=== PATIENT | male | born 1960 | race Caucasian/White ===

== ENCOUNTER 2019-02-23 22:01 | Emergency (ER) | payer BC ==
[2019-02-23] MEDS ORDERED: IPRATROPIUM BROM 0.5MG/2.5ML ONE (23:02)
[2019-02-23] MEDS ORDERED: ALBUTEROL 2.5 MG/3 ML NEB SOL ONE (23:02)
[2019-02-23] MEDS ORDERED: AZITHROMYCIN 500 MG INJ IVPB ONE (23:03)
[2019-02-23] MEDS ORDERED: CEFTRIAXONE/SWI 1gm 1 GM/10 ML SYR ONE (23:03)
[2019-02-23] MEDS ORDERED: NA CHLORIDE 0.9% 1,000 ML ONE (23:03)
[2019-02-23] MEDS ORDERED: NA CHLORIDE 0.9% 250 ML ONE (23:03)
[2019-02-23 23:17] LABS: Absolute Lymphocytes (CBC) 1.8 K/uL (0.7-4.9); Absolute Monocytes 1.6 K/uL (0.1-1.3); Absolute Neutrophil 6.6 K/uL (1.8-8.0); Basophils % 0.6 % (0-1.3); Hematocrit 40.7 % (39.6-49.0); Lymphocytes % 17.4 % (15.3-44.8); Monocytes % 15.5 % (3.3-12.3); RBC Red Blood Cell Count 4.57 M/uL (4.33-5.43)
[2019-02-23] MEDS ORDERED: METHYLPREDNISOLONE 125 MG INJ ONE (23:45)
[2019-02-23] MEDS ORDERED: HYDROCODONE/CHLORPHEN 5 ML/OSYR ONE (23:46)
[2019-02-23] MEDS ORDERED: predniSONE 20 MG TAB ONE (23:46)
[2019-02-23 23:53] LABS: ALT/SGPT 40 U/L (12-78); AST/SGOT 30 U/L (15-37); Albumin 3.7 g/dL (3.4-5.0); Alkaline Phosphatase 77 U/L (45-117); BUN Blood Urea Nitrogen 22 mg/dL (7-18); Bicarbonate 26 mmol/L (21-32); Bilirubin Direct 0.1 mg/dL (0-0.2); Bilirubin Total 0.4 mg/dL (0.2-1.0); Glucose Level 125 mg/dL (74-106); Magnesium 2.2 mg/dL (1.8-2.4); NT PRO-BNP 117 pg/mL (<125); Potassium 3.8 mmol/L (3.5-5.1); Protein, Total 7.1 g/dL (6.4-8.2); Sodium Level 141 mmol/L (136-145); Troponin (Emerg Dept Use Only) < 0.02 ng/mL (0.0-0.045)
--- NOTE | 2019-02-24 00:01 | ER ---
Nurse's Notes [facility] Name: Bebeto Baxter Age: 58 yrs Sex: Male : 1960 Arrival Date: 02/23/2019 Time: 22:03 Bed 7 Private MD: Kendall Snow H Diagnosis: Cough;Bronchitis, not specified as acute or chronic;Obesity, unspecified;Unspecified kidney failure Presentation: 02/23 22:11 Presenting complaint: Patient states: "I have so much chest congestion that it is jd3 causing coughing fits.". Transition of care: patient was not received from another setting of care. Resp Distress? No respiratory distress is noted at this time. Onset of symptoms was February 23, 2019. Risk Assessment: Do you want to hurt yourself or someone else? Patient reports no desire to harm self or others. Initial Sepsis Screen: Does the patient meet any 2 criteria? No. Patient's initial sepsis screen is negative. Does the patient have a suspected source of infection? No. Patient's initial sepsis screen is negative. Care prior to arrival: DayQuil taken in the afternoon. 22:11 Method Of Arrival: Ambulatory jd3 22:11 Acuity: RAAD 3 jd3 Historical: - Allergies: 22:14 No Known Allergies; jd3 - Home Meds: 22:14 lisinopril 20 mg Oral tab 2 tabs once daily [Active]; jd3 - PMHx: 22:14 Hypertension; jd3 - PSHx: 22:14 Tonsillectomy; jd3 - Immunization history:: Adult Immunizations up to date. - Social history:: Smoking status: Patient/guardian denies using tobacco, the patient reports quitting approximately 25 years ago. - Ebola Screening: : Patient negative for fever greater than or equal to 101.5 degrees Fahrenheit, and additional compatible Ebola Virus Disease symptoms. - Family history:: not pertinent. Screenin:26 Abuse screen: Denies threats or abuse. Denies injuries from another. Nutritional ao screening: No deficits noted. Tuberculosis screening: No symptoms or risk factors identified. Fall Risk None identified. Assessment: 22:23 General: Appears in no apparent distress. comfortable, Behavior is calm, cooperative, ao appropriate for age. Pain: Denies pain. Neuro: Level of Consciousness is awake, alert, obeys commands, Oriented to person, place, time, situation, Appropriate for age Moves all extremities. Full function Speech is normal, Facial symmetry appears normal, Pupils are PERRLA. Cardiovascular: Heart tones S1 S2 Capillary refill < 3 seconds Patient's skin is warm and dry. Respiratory: Airway is patent Respiratory effort is even, unlabored, Respiratory pattern is regular, symmetrical, Breath sounds are clear in left upper lobe, left lower lobe, right posterior upper lobe and right posterior middle lobe Breath sounds are coarse in left lower lobe and left posterior lower lobe. GI: Abdomen is obese, Bowel sounds present X 4 quads. : No signs and/or symptoms were reported regarding the genitourinary system. EENT: No signs and/or symptoms were reported regarding the EENT system. Derm: Skin is intact, Skin temperature is warm. Musculoskeletal: No signs and/or symptoms reported regarding the musculoskeletal system. 23:25 Reassessment: Patient appears in no apparent distress at this time. Patient and/or ao family updated on plan of care and expected duration. Pain level reassessed. Patient is alert, oriented x 3, equal unlabored respirations, skin warm/dry/pink. 02/24 00:35 Reassessment: Dc home. Pt agree to follow up with PCP. ao Vital Signs: 02/23 22:14 BP 135 / 69; Pulse 83; Resp 18 S; Temp 99.1(O); Pulse Ox 96% on R/A; Weight 122.47 kg jd3 (R); Height 5 ft. 8 in. (172.72 cm) (R); Pain 6/10; 23:25 BP 109 / 54; Pulse 77; Resp 18; Pulse Ox 100% on R/A; Pain 0/10; ao 02/24 00:36 BP 119 / 53; Pulse 77; Resp 18; Temp 98.6; Pulse Ox 97% on R/A; Pain 0/10; ao 02/23 22:14 Body Mass Index 41.05 (122.47 kg, 172.72 cm) jd3 ED Course: 02/23 22:03 Patient arrived in ED. am2 22:03 Kendall Snow DO is Private Physician. am2 22:12 Triage completed. jd3 22:15 Arm band placed on. jd3 22:16 Anthony Reed MD is Attending Physician. hemanth 22:17 Edenilson Hendricks RN is Primary Nurse. ao 22:25 Patient has correct armband on for positive identification. Pulse ox on. NIBP on. ao 23:00 Inserted saline lock: 20 gauge in left forearm, using aseptic technique. Blood ao collected. 23:07 Patient moved to radiology via wheelchair. jr1 23:07 X-ray completed. Patient tolerated procedure well. jr1 23:08 Chest Pa And Lat (2 Views) XRAY In Process Unspecified. EDMS 23:59 Kendall Snow DO is Referral Physician. hemanth 02/24 00:37 No provider procedures requiring assistance completed. IV discontinued, intact, ao bleeding controlled, No redness/swelling at site. Pressure dressing applied. Administered Medications: 02/23 03:10 Drug: Rocephin - (cefTRIAXone) 1 grams Route: IVPB; Infused Over: 30 mins; Site: left ao forearm; 02/24 00:33 Follow up: Response: No adverse reaction; IV Status: Completed infusion; IV Intake: 10mlao 02/23 23:20 Drug: NS 0.9% 500 ml Route: IV; Rate: bolus; Site: left antecubital; ao 23:40 Follow up: IV Status: Completed infusion; IV Intake: 500ml ao 23:20 Drug: Albuterol 2.5 mg Route: Inhalation; ao 02/24 00:34 Follow up: Response: No adverse reaction ao 00:34 Follow up: Response: No adverse reaction ao 02/23 23:20 Drug: AtroVENT Aerosol 0.5 mg Route: Inhalation; ao 23:21 Drug: Zithromax 500 mg Route: IVPB; Infused Over: 1 hrs; Site: left forearm; ao 02/24 00:33 Follow up: IV Status: Completed infusion ao 02/23 23:39 Drug: predniSONE 20 mg Route: PO; ao 02/24 00:35 Follow up: Response: No adverse reaction ao 02/23 23:40 Drug: NS 0.9% 1000 ml Route: IV; Rate: 125 ml/hr; Site: left forearm; ao 02/24 00:32 Follow up: IV Status: Completed infusion; IV Intake: 150ml ao 02/23 23:40 Drug: Tussionex Pennkinetic ER 5 ml Route: PO; ao 02/24 00:34 Follow up: Response: No adverse reaction ao 02/23 23:40 Drug: SOLU-Medrol 125 mg Route: IVP; Site: left forearm; ao 02/24 00:35 Follow up: Response: No adverse reaction ao Intake: 02/23 23:40 IV: 500ml; Total: 500ml. ao 02/24 00:32 IV: 150ml; Total: 650ml. ao 00:33 IV: 10ml; Total: 660ml. ao Outcome: 02/23 23:59 Discharge ordered by . hemanth 02/24 00:37 Discharged to home ambulatory. ao Condition: stable Discharge instructions given to patient, Instructed on discharge instructions, follow up and referral plans. Demonstrated understanding of instructions, follow-up care, medications, Prescriptions given X 4. 00:38 Patient left the ED. ao Signatures: Dispatcher [employer] EDMS Anthony Reed MD MD cha Ringgold, Jennifer jr1 Edenilson Hendricks, RN RN Juju Bass Jonathon RN RN jd3 Corrections: (The following items were deleted from the chart) 02/23 22:13 22:11 Care prior to arrival: None. jd3 jd3
--- NOTE | 2019-02-24 00:01 | EDPHYS ---
Physician Documentation [facility] Name: Bebeto Baxter Age: 58 yrs Sex: Male : 1960 Arrival Date: 02/23/2019 Time: 22:03 Bed 7 Private MD: Kendall Snow H ED Physician Anthony Reed HPI: 02/23 22:57 This 58 yrs old Male presents to ER via Ambulatory with complaints of Cough, hemanth Congestion, Breathing Difficulty. 22:57 This 58 yrs old Male presents to ER via Ambulatory with complaints of Cough, hemanth Congestion, Breathing Difficulty. 22:57 The patient or guardian reports airway noise, cough, difficulty breathing, flu hemanth symptoms. Onset: The symptoms/episode began/occurred 2 day(s) ago. Severity of symptoms: At their worst the symptoms were mild, moderate, in the emergency department the symptoms are unchanged. Modifying factors: The symptoms are alleviated by nothing, the symptoms are aggravated by nothing. Associated signs and symptoms: The patient has no apparent associated signs or symptoms. The patient has not experienced similar symptoms in the past. Historical: - Allergies: 22:14 No Known Allergies; jd3 - Home Meds: 22:14 lisinopril 20 mg Oral tab 2 tabs once daily [Active]; jd3 - PMHx: 22:14 Hypertension; jd3 - PSHx: 22:14 Tonsillectomy; jd3 - Immunization history:: Adult Immunizations up to date. - Social history:: Smoking status: Patient/guardian denies using tobacco, the patient reports quitting approximately 25 years ago. - Ebola Screening: : Patient negative for fever greater than or equal to 101.5 degrees Fahrenheit, and additional compatible Ebola Virus Disease symptoms. - Family history:: not pertinent. ROS: 22:57 Constitutional: Negative for fever, chills, and weight loss, Eyes: Negative for injury, hemanth pain, redness, and discharge, ENT: Negative for injury, pain, and discharge, Neck: Negative for injury, pain, and swelling, Cardiovascular: Negative for chest pain, palpitations, and edema, Abdomen/GI: Negative for abdominal pain, nausea, vomiting, diarrhea, and constipation, Back: Negative for injury and pain, : Negative for injury, bleeding, discharge, and swelling, MS/Extremity: Negative for injury and deformity, Skin: Negative for injury, rash, and discoloration, Neuro: Negative for headache, weakness, numbness, tingling, and seizure, Psych: Negative for depression, anxiety, suicide ideation, homicidal ideation, and hallucinations, Allergy/Immunology: Negative for hives, rash, and allergies, Endocrine: Negative for neck swelling, polydipsia, polyuria, polyphagia, and marked weight changes, Hematologic/Lymphatic: Negative for swollen nodes, abnormal bleeding, and unusual bruising. 22:57 Respiratory: Positive for cough, shortness of breath, wheezing, expiratory. Exam: 22:57 Constitutional: This is a well developed, well nourished patient who is awake, alert, hemanth and in no acute distress. Head/Face: Normocephalic, atraumatic. Eyes: Pupils equal round and reactive to light, extra-ocular motions intact. Lids and lashes normal. Conjunctiva and sclera are non-icteric and not injected. Cornea within normal limits. Periorbital areas with no swelling, redness, or edema. ENT: Nares patent. No nasal discharge, no septal abnormalities noted. Tympanic membranes are normal and external auditory canals are clear. Oropharynx with no redness, swelling, or masses, exudates, or evidence of obstruction, uvula midline. Mucous membranes moist. Neck: Trachea midline, no thyromegaly or masses palpated, and no cervical lymphadenopathy. Supple, full range of motion without nuchal rigidity, or vertebral point tenderness. No Meningismus. Chest/axilla: Normal chest wall appearance and motion. Nontender with no deformity. No lesions are appreciated. Cardiovascular: Regular rate and rhythm with a normal S1 and S2. No gallops, murmurs, or rubs. Normal PMI, no JVD. No pulse deficits. Abdomen/GI: Soft, non-tender, with normal bowel sounds. No distension or tympany. No guarding or rebound. No evidence of tenderness throughout. Back: No spinal tenderness. No costovertebral tenderness. Full range of motion. Male : Normal genitalia with no discharge or lesions. Skin: Warm, dry with normal turgor. Normal color with no rashes, no lesions, and no evidence of cellulitis. MS/ Extremity: Pulses equal, no cyanosis. Neurovascular intact. Full, normal range of motion. Neuro: Awake and alert, GCS 15, oriented to person, place, time, and situation. Cranial nerves II-XII grossly intact. Motor strength 5/5 in all extremities. Sensory grossly intact. Cerebellar exam normal. Normal gait. Psych: Awake, alert, with orientation to person, place and time. Behavior, mood, and affect are within normal limits. 22:57 Respiratory: the patient does not display signs of respiratory distress, Respirations: labored breathing, is not present, asymmetrical chest movement, is not seen, accessory muscle usage, is absent, Breath sounds: rhonchi, that are mild, are scattered, Respiratory rate: 18 Vital Signs: 22:14 BP 135 / 69; Pulse 83; Resp 18 S; Temp 99.1(O); Pulse Ox 96% on R/A; Weight 122.47 kg jd3 (R); Height 5 ft. 8 in. (172.72 cm) (R); Pain 6/10; 23:25 BP 109 / 54; Pulse 77; Resp 18; Pulse Ox 100% on R/A; Pain 0/10; ao 02/24 00:36 BP 119 / 53; Pulse 77; Resp 18; Temp 98.6; Pulse Ox 97% on R/A; Pain 0/10; ao 02/23 22:14 Body Mass Index 41.05 (122.47 kg, 172.72 cm) jd3 MDM: 02/23 22:16 Patient medically screened. [facility] 23:08 Data reviewed: vital signs, nurses notes, lab test result(s), electrolytes. [facility] 02/23 22:42 Order name: Basic Metabolic Panel; Complete Time: 23:54 [facility] 02/23 22:42 Order name: CBC with Diff; Complete Time: 23:54 [facility] 02/23 22:42 Order name: LFT's; Complete Time: 23:54 [facility] 02/23 22:42 Order name: Magnesium; Complete Time: 23:54 [facility] 02/23 22:42 Order name: NT PRO-BNP; Complete Time: 23:54 [facility] 02/23 22:42 Order name: Troponin (emerg Dept Use Only); Complete Time: 23:54 [facility] 02/23 22:42 Order name: Chest Pa And Lat (2 Views) XRAY 02/23 22:42 Order name: Influenza Screen (a \T\ B); Complete Time: 23:54 [facility] 02/23 22:42 Order name: EKG; Complete Time: 22:43 [facility] 02/23 22:42 Order name: Cardiac monitoring; Complete Time: 22:59 [facility] 02/23 22:42 Order name: EKG - Nurse/Tech; Complete Time: 22:59 [facility] 02/23 22:42 Order name: IV Saline Lock; Complete Time: 23:42 [facility] 02/23 22:42 Order name: Labs collected and sent; Complete Time: 23:42 [facility] 02/23 22:42 Order name: O2 Per Protocol; Complete Time: 22:59 [facility] 02/23 22:42 Order name: O2 Sat Monitoring; Complete Time: 22:59 [facility] Administered Medications: 03:10 Drug: Rocephin - (cefTRIAXone) 1 grams Route: IVPB; Infused Over: 30 mins; Site: left ao forearm; 02/24 00:33 Follow up: Response: No adverse reaction; IV Status: Completed infusion; IV Intake: 10mlao 02/23 23:20 Drug: NS 0.9% 500 ml Route: IV; Rate: bolus; Site: left antecubital; ao 23:40 Follow up: IV Status: Completed infusion; IV Intake: 500ml ao 23:20 Drug: Albuterol 2.5 mg Route: Inhalation; ao 02/24 00:34 Follow up: Response: No adverse reaction ao 00:34 Follow up: Response: No adverse reaction ao 02/23 23:20 Drug: AtroVENT Aerosol 0.5 mg Route: Inhalation; ao 23:21 Drug: Zithromax 500 mg Route: IVPB; Infused Over: 1 hrs; Site: left forearm; ao 02/24 00:33 Follow up: IV Status: Completed infusion ao 02/23 23:39 Drug: predniSONE 20 mg Route: PO; ao 02/24 00:35 Follow up: Response: No adverse reaction ao 02/23 23:40 Drug: NS 0.9% 1000 ml Route: IV; Rate: 125 ml/hr; Site: left forearm; ao 02/24 00:32 Follow up: IV Status: Completed infusion; IV Intake: 150ml ao 02/23 23:40 Drug: Tussionex Pennkinetic ER 5 ml Route: PO; ao 02/24 00:34 Follow up: Response: No adverse reaction ao 02/23 23:40 Drug: SOLU-Medrol 125 mg Route: IVP; Site: left forearm; ao 02/24 00:35 Follow up: Response: No adverse reaction ao Disposition: 02/23/19 23:59 Discharged to Home. Impression: Cough, Bronchitis, not specified as acute or chronic, Obesity, unspecified, Unspecified kidney failure. - Condition is Stable. - Discharge Instructions: Acute Bronchitis, Adult, Upper Respiratory Infection, Adult, Cool Mist Vaporizer, Upper Respiratory Infection, Adult, [id number], Cough, Adult, Mymn-hj-Xgvw, Chronic Kidney Disease, Adult, Slqg-nx-[id number], Cough, Adult, Chronic Kidney Disease, Adult. - Prescriptions for Cheratussin AC 10- 100 mg/5 mL Oral liquid - take 10 milliliter by ORAL route every 4 hours; 160 milliliter. Medrol (Laurent) 4 mg Oral Tablets, Dose Pack - take 1 tablet by ORAL route as directed - follow package instructions; 1 packet. Albuterol Sulfate 90 mcg/actuation - inhale 1-2 puff by INHALATION route every 4-6 hours; 1 Inhaler. Zithromax 500 mg Oral Tablet - take 1 tablet by ORAL route once daily for 5 days; 5 tablet. - Medication Reconciliation Form, Thank You Letter, Antibiotic Education, Prescription Opioid Use form. - Follow up: Kendall Snow; When: 2 - 3 days; Reason: Recheck today's complaints, Continuance of care, Re-evaluation by your physician. - Problem is new. - Symptoms have improved. Signatures: Dispatcher [employer] EDMS Anthony Reed MD MD cha Ortiz, Alex RN Byron Lemus RN RN jd3 Corrections: (The following items were deleted from the chart) 00:00 02/23 23:59 02/23/2019 23:59 Discharged to Home. Impression: Cough; Bronchitis, not hemanth specified as acute or chronic; Obesity, unspecified. Condition is Stable. Discharge Instructions: Acute Bronchitis, Adult, Upper Respiratory Infection, Adult, Cool Mist Vaporizer, Upper Respiratory Infection, Adult, [id number]-[id number], Cough, Adult, Mstx-uw-Vyyy, Cough, Adult. Prescriptions for Cheratussin AC 10-100 mg/5 mL Oral liquid - take 10 milliliter by ORAL route every 4 hours; 160 milliliter, Medrol (Laurent) 4 mg Oral Tablets, Dose Pack - take 1 tablet by ORAL route as directed - follow package instructions; 1 packet, Albuterol Sulfate 90 mcg/actuation - inhale 1-2 puff by INHALATION route every 4-6 hours; 1 Inhaler, Zithromax 500 mg Oral Tablet - take 1 tablet by ORAL route once daily for 5 days; 5 tablet. and Forms are Medication Reconciliation Form, Thank You Letter, Antibiotic Education, Prescription Opioid Use. [facility]; When: 2 - 3 days; Reason: Recheck today's complaints, Continuance of care, Re-evaluation by your physician. Problem is new. Symptoms have improved. [facility] 02/24 00:38 00:00 02/23/2019 23:59 Discharged to Home. Impression: Cough; Bronchitis, not specified ao as acute or chronic; Obesity, unspecified; Unspecified kidney failure. Condition is Stable. Discharge Instructions: Acute Bronchitis, Adult, Upper Respiratory Infection, Adult, Cool Mist Vaporizer, Upper Respiratory Infection, Adult, [id number]-ga-[id number], Cough, Adult, Bgpx-hj-[id number], Cough, Adult. Prescriptions for Cheratussin AC 10-100 mg/5 mL Oral liquid - take 10 milliliter by ORAL route every 4 hours; 160 milliliter, Medrol (Laurent) 4 mg Oral Tablets, Dose Pack - take 1 tablet by ORAL route as directed - follow package instructions; 1 packet, Albuterol Sulfate 90 mcg/actuation - inhale 1-2 puff by INHALATION route every 4-6 hours; 1 Inhaler, Zithromax 500 mg Oral Tablet - take 1 tablet by ORAL route once daily for 5 days; 5 tablet. and Forms are Medication Reconciliation Form, Thank You Letter, Antibiotic Education, Prescription Opioid Use. Follow up: Kendall Snow; When: 2 - 3 days; Reason: Recheck today's complaints, Continuance of care, Re-evaluation by your physician. Problem is new. Symptoms have improved. [facility]
--- NOTE | 2019-02-24 10:08 | RAD REPORT ---
EXAM DESCRIPTION: Fernie Lundberg (2 Views)02/23/2019 11:12 pm CLINICAL HISTORY: Cough COMPARISON: None FINDINGS: The lungs appear clear of acute infiltrate. The heart is normal size IMPRESSION: No acute abnormalities displayed
--- NOTE | 2019-02-25 07:50 | EKG ---
Test Date: 2019-02-23 Test Time: 22:52:07 Electronic Development Technician: KRISTA MEASUREMENT RESULTS: Intervals: Rate: 91 DE: 152 QRSD: 98 QT: 370 QTc: 455 [place]: P: 57 DE: 152 QRS: 27 T: 68 INTERPRETIVE STATEMENTS: Normal sinus rhythm Possible Inferior infarct, age undetermined Abnormal ECG No previous ECG available for comparison Electronically Signed On 02-25-19 07:47:41 CDT by Jordan Brush
== END 2019-02-24 00:38 | disposition home or self-care (01) ==
LOC: ER 22:01
DX: J40 Bronchitis, not specified as acute or chronic (principal); E66.9 Obesity, unspecified; N19 Unspecified kidney failure; I10 Essential (primary) hypertension; Z87.891 Personal history of nicotine dependence
CPT/HCPCS: 36415; 71046; 80048; 80076; 83735; 83880; 84484; 85025; 87804; 93005; 96365; 96366; 96375; 99284; J0456; J0696; J2930; J7030; J7512

== ENCOUNTER 2025-06-06 20:40 | Emergency (ER) | payer BC ==
[2025-06-06] MEDS ORDERED: IBUPROFEN 400 MG TAB ONE (21:07)
--- NOTE | 2025-06-06 21:57 | RAD REPORT ---
EXAM: XR Wrist Right 2 View HISTORY: [facility] MAIN PAIN Bed Name: [email or web address] COMPARISON: None TECHNIQUE: 3 views of the right wrist. FINDINGS: No evidence of acute fracture or dislocation. Joint alignment is maintained. Mild soft tis ridge swelling is seen. Advanced intercarpal degenerative changes are present. IMPRESSION: No evidence of acute osseous abnormality. Mild soft tissue swelling. Advanced intercarp al degenerative changes are present.
--- NOTE | 2025-06-06 22:07 | ER ---
Nurse's Notes [facility] Name: Bebeto Baxter Age: 65 yrs Sex: Male : 1960 Arrival Date: 06/06/2025 Time: 20:40 Bed 12 Private MD: Diagnosis: Sprain of unspecified part of right wrist and hand Presentation: 06/06 20:47 Chief complaint: Patient states: on Tuesday patient was moving a storage building and me1 somehow injured his right wrist. Pain level 6/10 at this time, pain is worse with movement or picking up something. Coronavirus screen: At this time, the client does not indicate any symptoms associated with coronavirus-19. Ebola Screen: No symptoms or risks identified at this time. Initial Sepsis Screen: Does the patient meet any 2 criteria? No. Patient's initial sepsis screen is negative. Does the patient have a suspected source of infection? No. Patient's initial sepsis screen is negative. Risk Assessment: Do you want to hurt yourself or someone else? Patient reports no desire to harm self or others. Onset of symptoms was June 03, 2025. 20:47 Method Of Arrival: Ambulatory fl1 20:47 Acuity: RAAD 4 me1 Historical: - Allergies: 20:50 No Known Allergies; me1 - PMHx: 20:50 Hypertension; me1 - PSHx: 20:50 carpal tunnel bilaterally; Tonsillectomy; me1 - Immunization history:: Adult Immunizations up to date. - Infectious Disease History:: Denies. - Social history:: Smoking status: Patient/guardian denies using tobacco, but has a distant history of tobacco abuse. Screenin:34 [facility] ED Fall Risk Assessment (Adult) History of falling in the last 3 months, jb4 including since admission No falls in past 3 months (0 pts) Confusion or Disorientation No (0 pts) Intoxicated or Sedated No (0 pts) Impaired Gait No (0 pts) Mobility Assist Device Used No (0 pt) Altered Elimination No (0 pt) Score/Fall Risk Level 0 - 2 = Low Risk Oriented to surroundings, Maintained a safe environment. Abuse screen: Denies threats or abuse. Nutritional screening: No deficits noted. Tuberculosis screening: No symptoms or risk factors identified. Assessment: 21:34 General: Appears in no apparent distress. comfortable, Behavior is calm, cooperative. jb4 Pain: Complains of pain in right wrist Pain does not radiate. Pain currently is 6 out of 10 on a pain scale. Neuro: Level of Consciousness is awake, alert, obeys commands, Oriented to person, place, time, situation. Cardiovascular: Patient's skin is warm and dry. Respiratory: Airway is patent Respiratory effort is even, unlabored, Respiratory pattern is regular, symmetrical. Derm: Skin is intact, Skin is pink, warm \T\ dry. Musculoskeletal: Circulation, motion, and sensation intact. Range of motion: intact in all extremities. 22:09 Reassessment: Patient appears in no apparent distress at this time. Patient and/or jb4 family updated on plan of care and expected duration. Pain level reassessed. Patient is alert, oriented x 3, equal unlabored respirations, skin warm/dry/pink. Vital Signs: 20:47 BP 127 / 73; Pulse 69; Resp 17; Temp 98.2; Pulse Ox 97% ; Weight 114.31 kg; Height 5 me1 ft. 8 in. ; Pain 6/10; 20:47 Body Mass Index 38.32 (114.31 kg, 172.72 cm) me1 20:47 Pain Scale: Adult me1 ED Course: 20:43 Patient arrived in ED. im 20:46 Aly Farias NP is PHCP. cr8 20:46 Sourav Kinney MD is Attending Physician. cr8 20:50 Triage completed. me1 20:50 Arm band placed on Patient placed in waiting room. me1 21:15 Wrist Right 2 View XRAY In Process Unspecified. EDMS 21:34 Lamberto Clifton, JUNIOR is Primary Nurse. jb4 21:34 Patient has correct armband on for positive identification. Bed in low position. Call jb4 light in reach. Side rails up X 1. Provided Education on: plan of care. 21:34 No provider procedures requiring assistance completed. Patient did not have IV access jb4 during this emergency room visit. Administered Medications: 21:16 Drug: Ibuprofen PO 400 mg PO once Route: PO; jb4 22:08 Follow up: Response: No adverse reaction; Marked relief of symptoms; Pain is decreased jb4 21:16 Drug: Dexamethasone PO 4 mg PO once Route: PO; jb4 22:09 Follow up: Response: No adverse reaction jb4 Medication: 21:34 VIS not applicable for this client. jb4 Outcome: 22:06 Discharge ordered by . nataly 22:15 Discharged to home ambulatory, jb4 22:15 Condition: stable 22:15 Discharge instructions given to patient, Instructed on discharge instructions, follow up and referral plans. no drinking with medication, medication usage, Demonstrated understanding of instructions, follow-up care, medications, 22:15 Patient left the ED. jb4 Signatures: Dispatcher [employer] EDLamberto Foley RN RN jb4 Autumn Bowen Michelle, RN RN me1 Aly Farias, ULTRASOUND SPECIALIST ULTRASOUND SPECIALIST cr8
--- NOTE | 2025-06-06 22:07 | EDPHYS ---
Physician Documentation [facility] Name: Bebeto Baxter Age: 65 yrs Sex: Male : 1960 Arrival Date: 06/06/2025 Time: 20:40 Bed 12 Private MD: ED Physician Sourav Kinney HPI: 06/06 21:14 This 65 yrs old Male presents to ER via Ambulatory with complaints of Hand Pain, Wrist cr8 Pain. 21:14 Patient is a 65-year-old male that comes emergency room complaining of right wrist and cr8 hand pain. He reports on Tuesday he was pushing a tent over a fence and felt a sudden pain to the right wrist. States he continues to have pain and swelling. Neurovascular status intact distally. No other injuries. Appears in no acute distress during examination. Historical: - Allergies: 20:50 No Known Allergies; me1 - PMHx: 20:50 Hypertension; me1 - PSHx: 20:50 carpal tunnel bilaterally; Tonsillectomy; me1 - Immunization history:: Adult Immunizations up to date. - Infectious Disease History:: Denies. - Social history:: Smoking status: Patient/guardian denies using tobacco, but has a distant history of tobacco abuse. ROS: 21:14 Constitutional: as per HPI cr8 Exam: 21:14 Constitutional: This is a well developed, well nourished patient who is awake, alert, cr8 and in no acute distress. Skin: Warm, dry with normal turgor. Normal color with no rashes, no lesions, and no evidence of cellulitis. MS/ Extremity: Pulses equal, no cyanosis. Neurovascular intact. Full, normal range of motion. Mild edema to the left wrist and left posterior hand, no ecchymosis present, no warmth erythema overlying the joint, neurovascular status intact the fingers and hand. No deformity. Neuro: Awake and alert, GCS 15, oriented to person, place, time, and situation. Cranial nerves II-XII grossly intact. Motor strength 5/5 in all extremities. Sensory grossly intact. Vital Signs: 20:47 BP 127 / 73; Pulse 69; Resp 17; Temp 98.2; Pulse Ox 97% ; Weight 114.31 kg; Height 5 me1 ft. 8 in. ; Pain 6/10; 20:47 Body Mass Index 38.32 (114.31 kg, 172.72 cm) me1 20:47 Pain Scale: Adult me1 MDM: 20:51 Medical Screening Exam initiated cr8 21:42 Data reviewed: vital signs, nurses notes, radiologic studies, plain films. Independent cr8 interpretation of the following test(s) in the Emergency Department X-Ray: My interpretation is no acute fracture or dislocation. 22:42 ED course: Patient came to emergency room for right wrist and hand pain. Considered cr8 sprain strain fracture dislocation septic arthritis/arthritis. Ordered x-ray to evaluate for fracture dislocation or any other abnormalities. The x-ray did not show any evidence of a fracture or dislocation. Show degeneration of the carpal bones. Consider septic arthritis but there is no significant edema warmth erythema and pain is not a proportion. Presentation is consistent with sprain/strain compounded with arthritis. He was given dexamethasone and ibuprofen here in the emergency room. Neurovascular status was intact. There is no evidence of emergent condition. Discussed treatment plan at home which is mainly symptomatic. Advised to follow-up with his PCP if no improvement in next 3 to 5 days Advised to return for new or worsening symptoms. 06/06 20:57 Order name: Wrist Right 2 View XRAY; Complete Time: 22:06 cr8 Administered Medications: 21:16 Drug: Ibuprofen PO 400 mg PO once Route: PO; jb4 22:08 Follow up: Response: No adverse reaction; Marked relief of symptoms; Pain is decreased jb4 21:16 Drug: Dexamethasone PO 4 mg PO once Route: PO; jb4 22:09 Follow up: Response: No adverse reaction jb4 Disposition: 06/07 00:58 Co-signature as Attending Physician, Sourav Kinney MD I agree with the assessment sp4 and plan of care. I reviewed the patient's care provided by the Advanced Practice Provider and agree with the diagnosis and treatment plan. Disposition Summary: 06/06/25 22:06 Discharge Ordered Notes: Location: Home cr8 Condition: Stable cr8 Diagnosis - Sprain of unspecified part of right wrist and hand cr8 Followup: cr8 - With: Private Physician - When: 2 - 3 days - Reason: Recheck today's complaints, Re-evaluation by your physician Followup: cr8 - With: Emergency Department - When: As needed - Reason: Trouble breathing, Worsening of condition Discharge Instructions: - Discharge Summary Sheet cr8 - Wrist Sprain, Adult cr8 Forms: - Medication Reconciliation Form cr8 - Patient Portal Instructions cr8 - Leadership Thank You Letter cr8 Prescriptions: - Naprosyn 500 mg Oral tablet - take 1 tablet ORAL route 2 times per day take one tablet as needed for pain cr8 daily with food; 10 tablet; Refills: 0, Product Selection Permitted Signatures: Dispatcher [employer] Lamberto Gonzalez RN RN jb4 Sourav Kinney MD MD sp4 Roz Echols RN RN me1 Aly Farias, MAICO RECYCLING OR RUBBISH COLLECTOR cr8
== END 2025-06-06 22:15 | disposition home or self-care (01) ==
LOC: ER 20:40
DX: S63.91XA Sprain of unspecified part of right wrist and hand, initial encounter (principal)
CPT/HCPCS: 73100; 99283; J8540